=== PATIENT | female | born 1990 | race Caucasian/White ===

== ENCOUNTER 2016-05-21 20:14 | Emergency (ER) | payer OTHER ==
[2016-05-21] MEDS ORDERED: MECLIZINE 12.5 MG TABLET PO STA (20:50)
[2016-05-21] MEDS ORDERED: SODIUM CHLORIDE 0.9% 1,000 ML IV ONE (20:50)
== END 2016-05-21 21:18 | disposition home or self-care (01) ==
DX: F43.0 Acute stress reaction (principal); J45.909 Unspecified asthma, uncomplicated

== ENCOUNTER 2018-01-17 09:53 | Outpatient (CLI) | payer OTHER ==
[2018-01-17] MEDS ORDERED: IOPAMIDOL-300 100 ML VIAL ONE (10:01)
== END 2018-01-17 09:54 | disposition home or self-care (01) ==
LOC: DI 09:53
PROVIDERS: ATTEND Otolaryngology Facial Plastic Surgery
DX: R22.1 Localized swelling, mass and lump, neck (principal); Z53.9 Procedure and treatment not carried out, unspecified reason